=== PATIENT | male | born 1970 | race Caucasian/White ===

== ENCOUNTER 2019-04-11 10:23 | Emergency (ER) | payer OTHER, SELFPAY ==
--- OUTSIDE RECORDS SUMMARY | 2019-04-11 10:31 | XMS REPORT ---
:1970 [facility] Address [address] [place] [address] Care Team Providers Name Role Phone Unavailable Unavailable Unavailable Problems This patient has no known problems. Allergies, Adverse Reactions, Alerts This patient has no known allergies or adverse reactions. Medications This patient has no known medications.
--- NOTE | 2019-04-11 11:35 | RAD REPORT ---
EXAM DESCRIPTION: RAD - Chest Single View - 04/11/2019 11:27 am CLINICAL HISTORY: vomiting Chest pain. COMPARISON: No comparisons FINDINGS: Portable technique limits examination quality. Emphysematous changes are present throughout the lungs. The heart is upper limit of normal in size. N o displaced fractures. IMPRESSION: COPD.
[2019-04-11] MEDS ORDERED: ONDANSETRON 4 MG/2 ML VIAL ONE (11:44)
[2019-04-11] MEDS ORDERED: NA CHLORIDE 0.9% 1,000 ML ONE (11:44)
[2019-04-11] MEDS ORDERED: PANTOPRAZOLE 40 MG INJ ONE (11:44)
[2019-04-11] MEDS ORDERED: FAMOTIDINE 20 MG/2 ML VIAL IV ONE (11:44)
[2019-04-11 11:54] LABS: Absolute Lymphocytes (CBC) 1.8 K/uL (0.7-4.9); Basophils % 0.3 % (0-1.3); Hematocrit 43.4 % (39.6-49.0); Lymphocytes % 14.6 % (15.3-44.8); MPV 7.4 fL (7.6-11.3)
[2019-04-11 12:06] LABS: Protime INR 0.83
[2019-04-11 12:15] LABS: ALT/SGPT 61 U/L (12-78); AST/SGOT 39 U/L (15-37); Albumin 3.3 g/dL (3.4-5.0); Alkaline Phosphatase 54 U/L (45-117); BUN Blood Urea Nitrogen 16 mg/dL (7-18); Bicarbonate 26 mmol/L (21-32); Bilirubin Direct 0.2 mg/dL (0-0.2); Bilirubin Total 0.5 mg/dL (0.2-1.0); Glucose Level 105 mg/dL (74-106); Lipase 277 U/L (73-393); Magnesium 2.2 mg/dL (1.8-2.4); NT PRO-BNP 7 pg/mL (<125); Potassium 3.5 mmol/L (3.5-5.1); Protein, Total 6.4 g/dL (6.4-8.2); Sodium Level 139 mmol/L (136-145); Troponin (Emerg Dept Use Only) < 0.02 ng/mL (0.0-0.045)
--- NOTE | 2019-04-11 14:57 | EKG ---
Test Date: 2019-04-11 Test Time: 10:46:14 Talkback Host: TRISTAN MEASUREMENT RESULTS: Intervals: Rate: 107 IA: 134 QRSD: 76 QT: 308 QTc: 411 [place]: P: 61 IA: 134 QRS: 67 T: 49 INTERPRETIVE STATEMENTS: Sinus tachycardia Otherwise normal ECG No previous ECG available for comparison Electronically Signed On 04-11-19 14:56:03 CDT by Hector Titus
--- NOTE | 2019-04-11 18:36 | ER ---
Nurse's Notes [facility] Name: Rick Aguilera Age: 48 yrs Sex: Male : 1970 Arrival Date: 04/11/2019 Time: 10:27 Bed 18 Private MD: Diagnosis: Presentation: 04/11 10:38 Presenting complaint: Patient states: "I started throwing up blood last night and I aj1 can't stop. I haven't eaten in 2 weeks. I buried my son 2 weeks ago, I'm not doing well. I keep passing out. I can't do it anymore" Reports abdominal pain. Reports that he has vomited blood 15 times in the past 24 hours. Reports that he has been drinking a bottle of vodka a day for the past 2 weeks. Transition of care: patient was not received from another setting of care. Onset of symptoms was April 10, 2019. Risk Assessment: Do you want to hurt yourself or someone else? Patient reports no desire to harm self or others. Initial Sepsis Screen: Does the patient meet any 2 criteria? HR > 90 bpm. No. Patient's initial sepsis screen is negative. Does the patient have a suspected source of infection? Yes: Acute abdominal pain. Care prior to arrival: None. 10:38 Method Of Arrival: Wheelchair aj1 10:38 Acuity: MAGDALENE 3 aj1 Triage Assessment: 10:41 General: Appears distressed, uncomfortable, Behavior is cooperative, anxious, restless. aj1 Pain: Complains of pain in abdomen Pain currently is 3 out of 10 on a pain scale. Neuro: Level of Consciousness is awake, alert, obeys commands. Cardiovascular: Patient's skin is warm and dry. Respiratory: Airway is patent Respiratory effort is even, unlabored, Respiratory pattern is regular, symmetrical. Historical: - Allergies: 10:41 No Known Allergies; aj1 - Home Meds: 10:43 None [Active]; aj1 - PMHx: 10:41 None; aj1 - PSHx: 10:43 None; aj1 - Immunization history:: Adult Immunizations up to date. - Social history:: Smoking status: Patient uses tobacco products, smokes two packs cigarettes per day. - Ebola Screening: : Patient denies travel to an Ebola-affected area in the 21 days before illness onset. Screenin:05 Abuse screen: Denies threats or abuse. Denies injuries from another. Nutritional bp screening: No deficits noted. Tuberculosis screening: No symptoms or risk factors identified. Fall Risk None identified. Assessment: 11:05 General: SEE TRIAGE NOTE. bp 12:15 Reassessment: ALL CURRENT ORDERS COMPLETED, RESULTS PENDING. bp 14:32 Reassessment: PT ELOPED WITHOUT NOTIFYING STAFF, PIV FOUND IN ROOM. bp Vital Signs: 10:41 BP 126 / 97; Pulse 107; Resp 20; Temp 99.2(TE); Pulse Ox 97% on R/A; Height 6 ft. 2 in. aj1 (187.96 cm) (R); Pain 3/10; 12:15 BP 139 / 83; Pulse 96; Resp 17; Pulse Ox 100% ; bp ED Course: 10:27 Patient arrived in ED. mr 10:41 Triage completed. aj1 10:41 Arm band placed on. aj1 11:01 Carl Velasquez PA is PHCP. cp 11:01 Corwin Kumar MD is Attending Physician. cp 11:05 Sony Tomlinson, WILLIAM is Primary Nurse. bp 11:05 Patient has correct armband on for positive identification. Placed in gown. Bed in low bp position. Call light in reach. Side rails up X2. 11:26 X-ray completed. Portable x-ray completed in exam room. Patient tolerated procedure sw well. 14:31 Note: went to go get pt, but pt was not in room. iv bag and catheter was in trash can.. sj 14:32 No provider procedures requiring assistance completed. IV discontinued, intact. bp Administered Medications: 11:15 Drug: NS 0.9% 1000 ml Route: IV; Rate: 1 bolus; Site: right forearm; bp 13:42 Follow up: IV Status: Completed infusion; IV Intake: 1000ml bp 11:15 Drug: Zofran 4 mg Route: IVP; Site: right forearm; bp 13:42 Follow up: Response: No adverse reaction bp 11:15 Drug: Pepcid 20 mg Route: IVP; Site: right forearm; bp 13:42 Follow up: Response: No adverse reaction bp 11:15 Drug: ProTONIX 40 mg Route: IVP; Site: right forearm; bp 13:42 Follow up: Response: No adverse reaction bp Intake: 13:42 IV: 1000ml; Total: 1000ml. bp Outcome: 14:33 Eloped from patient exam room, after seeing physician Time discovered patient gone: bp April 11, 2019 at 14:33 14:33 Condition: stable 14:37 Patient left the ED. bp Signatures: Page Eldridge, RN RN aj1 Reeder, Nicole mr Pool, Susan Lucas, Carl Kang PA PA cp Peltier, Brian, RN RN bp
--- NOTE | 2019-04-11 18:36 | EDPHYS ---
Physician Documentation [facility] Name: Rick Aguilera Age: 48 yrs Sex: Male : 1970 Arrival Date: 04/11/2019 Time: 10:27 Bed 18 Private MD: ED Physician Corwin Kumar HPI: 04/11 11:10 This 48 yrs old Male presents to ER via Wheelchair with complaints of Alcohol cp Withdrawal, Vomiting blood. 11:10 The patient presents to the emergency department with nausea, that is mild, vomiting, cp that is continuous, described as bright red blood, dark brown. 11:10 Onset: The symptoms/episode began/occurred last night. Associated signs and symptoms: cp Pertinent positives: nausea, Pertinent negatives: constipation, diarrhea, dysuria, fever, active vomiting. Patient admits to daily drinking for past 2 weeks due to recent passing of son. Historical: - Allergies: 10:41 No Known Allergies; aj1 - Home Meds: 10:43 None [Active]; aj1 - PMHx: 10:41 None; aj1 - PSHx: 10:43 None; aj1 - Immunization history:: Adult Immunizations up to date. - Social history:: Smoking status: Patient uses tobacco products, smokes two packs cigarettes per day. - Ebola Screening: : Patient denies travel to an Ebola-affected area in the 21 days before illness onset. ROS: 11:15 Constitutional: Negative for body aches, chills, fever, poor PO intake. cp 11:15 Eyes: Negative for injury, pain, redness, and discharge. cp 11:15 Neck: Negative for pain with movement, pain at rest, stiffness. cp 11:15 Cardiovascular: Negative for chest pain, palpitations. 11:15 Respiratory: Negative for cough, shortness of breath, wheezing. 11:15 Abdomen/GI: Positive for abdominal pain, Negative for diarrhea, black/tarry stool, rectal bleeding, active vomiting. 11:15 Back: Negative for radiated pain. 11:15 : Negative for urinary symptoms, testicular pain 11:15 Psych: Positive for alcohol dependence, Negative for auditory hallucinations, visual hallucinations, homicidal ideation, suicide gesture, suicidal ideation. 11:15 All other systems are negative. Exam: 11:20 Constitutional: The patient appears in no acute distress, alert, awake, cp non-diaphoretic, non-toxic, well developed, well nourished. 11:20 Head/Face: Normocephalic, atraumatic. cp 11:20 Eyes: Periorbital structures: appear normal, Conjunctiva: normal, no exudate, no injection, Sclera: no appreciated abnormality, Lids and lashes: appear normal, bilaterally. 11:20 ENT: External ear(s): are unremarkable, Ear canal(s): are normal, clear, TM's: dullness, bilaterally, Nose: is normal, Mouth: Lips: moist, Oral mucosa: pink and intact, moist, Posterior pharynx: is normal, airway is patent, no erythema, no exudate. 11:20 Chest/axilla: Inspection: normal, Palpation: is normal, no crepitus, no tenderness. 11:20 Cardiovascular: Rate: tachycardic, Rhythm: regular, Heart sounds: murmur, not appreciated, Edema: is not appreciated, JVD: is not appreciated. 11:20 Respiratory: the patient does not display signs of respiratory distress, Respirations: normal, no use of accessory muscles, no retractions, no splinting, no tachypnea, labored breathing, is not present, Breath sounds: are clear throughout, no decreased breath sounds, no stridor, no wheezing. 11:20 Abdomen/GI: Inspection: abdomen appears normal, Bowel sounds: active, all quadrants, Palpation: soft, in all quadrants, mild abdominal tenderness, in the right lower quadrant, rebound tenderness, is not appreciated, voluntary guarding, is not appreciated, involuntary guarding, is not appreciated. 11:20 Back: pain, is absent, ROM is normal. 11:20 Skin: no rash present. 11:20 Neuro: Orientation: to person, place \T\ time. Mentation: is normal, Cerebellar function: is grossly normal, Motor: is normal, Gait: is steady. Vital Signs: 10:41 BP 126 / 97; Pulse 107; Resp 20; Temp 99.2(TE); Pulse Ox 97% on R/A; Height 6 ft. 2 in. aj1 (187.96 cm) (R); Pain 3/10; 12:15 BP 139 / 83; Pulse 96; Resp 17; Pulse Ox 100% ; bp MDM: 11:05 Patient medically screened. cp 04/11 11:09 Order name: Basic Metabolic Panel 04/11 11:09 Order name: CBC with Diff 04/11 11:09 Order name: LFT's 04/11 11:09 Order name: Magnesium 04/11 11:09 Order name: NT PRO-BNP 04/11 11:09 Order name: PT-INR 04/11 11:09 Order name: Troponin (emerg Dept Use Only) 04/11 11:09 Order name: XRAY Chest (1 view) 04/11 11:09 Order name: Lipase 04/11 11:09 Order name: Ptt, Activated 04/11 11:10 Order name: ETOH Level 04/11 12:53 Order name: CT Abd/Pelvis - IV Contrast Only 04/11 11:09 Order name: EKG; Complete Time: 11:12 cp 04/11 11:09 Order name: Cardiac monitoring; Complete Time: 11:40 04/11 11:09 Order name: EKG - Nurse/Tech; Complete Time: 11:40 04/11 11:09 Order name: IV Saline Lock; Complete Time: 11:40 04/11 11:09 Order name: Labs collected and sent; Complete Time: 11:40 04/11 11:09 Order name: O2 Per Protocol; Complete Time: 11:40 04/11 11:09 Order name: O2 Sat Monitoring; Complete Time: 11:40 cp Administered Medications: 11:15 Drug: NS 0.9% 1000 ml Route: IV; Rate: 1 bolus; Site: right forearm; bp 13:42 Follow up: IV Status: Completed infusion; IV Intake: 1000ml bp 11:15 Drug: Zofran 4 mg Route: IVP; Site: right forearm; bp 13:42 Follow up: Response: No adverse reaction bp 11:15 Drug: Pepcid 20 mg Route: IVP; Site: right forearm; bp 13:42 Follow up: Response: No adverse reaction bp 11:15 Drug: ProTONIX 40 mg Route: IVP; Site: right forearm; bp 13:42 Follow up: Response: No adverse reaction bp Disposition: 14:52 Co-signature as Attending Physician, Corwin Kumar MD I agree with the assessment and kdr plan of care. Disposition: 04/11/19 14:37 Patient left the facility after being seen by provider. - Patient left due to unknown. Signatures: Dispatcher [employer] Page Hastings RN RN aj1 Corwin Kumar MD MD kdr Carl Velasquez PA PA Sony Brown, RN RN bp Corrections: (The following items were deleted from the chart) 04/10 11:15 Constitutional: Negative for body aches, chills, fever, poor PO intake, cp cp 04/11 11:15 Eyes: Negative for injury, pain, redness, and discharge, cp
== END 2019-04-11 14:37 | disposition left against medical advice (07) ==
LOC: ER 10:23
DX: R11.2 Nausea with vomiting, unspecified (principal); F10.20 Alcohol dependence, uncomplicated; F17.210 Nicotine dependence, cigarettes, uncomplicated; Z53.21 Procedure and treatment not carried out due to patient leaving prior to being seen by health care provider
CPT/HCPCS: 36415; 71045; 80048; 80076; 80320; 83690; 83735; 83880; 84484; 85025; 85610; 85730; 93005; 96361; 96374; 96375; 99282; C9113; J2405; J7030